=== PATIENT | male | born 1960 | race Caucasian/White ===

== ENCOUNTER 2020-10-29 15:45 | Emergency (ER) | payer OTHER ==
[~2020-10-29] VITALS: Ht 180.3 cm; Wt 112.5 kg
--- NOTE | ~2020-10-29 | EMS ---
[address] [address] EMS Patient Care Report Name: ARIADNA HAJI Room #: DEP TL Sanford#: [id number] Admission: 10/29/20 Attend Phys: Discharge: 10/29/20 Date of : 64 Report #: [id number] THIS REPORT FOR: //name// Report Transmitted: 10/31/2020 14:28 EMS Care Summary [place], [place]/[facility] Incident [id number] @ 10/29/2020 15:06 Incident Location [id number] [place] [address] Patient ARIADNA HAJI Male, 60 Years 1960 Patient Address [address] [place] [address] Patient History Epilepsy,Diabetes,Hypertension (HTN),Stroke/CVA,Hyperlipidemia,Depression, Patient Allergies Penicillin allergy, Patient Medications Atorvastatin, Amlodipine, Lisinopril, Metformin, Keppra, Gabapentin, Plavix, Clonidine, Cymbalta, Insulin, Chief Complaint CHEST PAIN Disposition Transported No Lights/[place] Dispatch Reason Chest Pain (Non-Traumatic) Transported To [facility] Narrative UPON ARRIVAL WE FOUND OUR 61 YEAR OLD MALE PATIENT SITTING IN A W/C IN THE HALLWAY AT [facility] WITH STAFF BY HIS SIDE COMPLAINING OF [address] [address] EMS Patient Care Report Name: ARIADNA HAJI Room #: DEP TL Sanford#: [id number] Admission: 10/29/20 Attend Phys: Discharge: 10/29/20 Date of : 64 Report #: [id number] SHARP, REPRODUCIBLE, RIGHT SIDED CHEST PAIN X 30 MINS THAT STARTED WHILE HE WAS SMOKING A CIGARETTE. THE PATIENT IS A GONCALVES OF THE [facility] AND STAFF REQUESTS THE PATIENT BE TRANSPORTED TO [facility] FOR EVALUATION. Initial Vitals @15:30P: 96,R: 18,BP: 166/98,Pain: 4/10,GCS: 15,Glucose: 215,CO: 3,SpO2: 96,Revised Trauma: 12,MO Suspected: false @15:40P: 64,R: 18,BP: 160/90,Pain: 4/10,GCS: 15,SpO2: 98,Revised Trauma: 12,MO Suspected: false Assessments @15:24MENTAL:Place Oriented,Event Oriented,Time Oriented,Person Oriented,SKIN:HEENT:Eyes: Left Pupil: 4-mm,Eyes: Right Pupil: 4-mm,Head/Face: No Abnormalities,Neck/Airway: No Abnormalities,LUNG SOUNDS:General: No Abnormalities,ABDOMEN:General: No Abnormalities,PELVIS//GI:No Abnormalities,EXTREMITIES:Left Arm: No Abnormalities,Right Arm: No Abnormalities,Left Leg: No Abnormalities,Right Leg: No Abnormalities,PULSE:Radial: 2+ Normal,NEURO:No Abnormalities, Impression Chest Pain / Discomfort Procedures @15:24ALS AssessmentResponse: UnchangedSucceeded@15:303-Lead ECGResponse: UnchangedSucceeded@15:32Saline Lock 0cc (20 ga) Site: Forearm-LeftResponse: UnchangedSucceeded Timeline 15:04,Call Received 15:04,Dispatch Notified 15:06,Dispatched 15:09,En Route 15:21,On Scene 15:24,At Patient 15:24,ALS Assessment,Response: UnchangedSucceeded, 15:30,3-Lead ECG,Response: UnchangedSucceeded, 15:30,BP: 166/98 M,PULSE: 96,RR: 18 R,SPO2: 96 Ox,ETCO2: ,B,PAIN: 4,GCS: 15, 15:32,Saline Lock 0cc 20 ga Site: Forearm-Left,Response: UnchangedSucceeded, 15:34,Depart Scene 15:40,BP: 160/90 M,PULSE: 64,RR: 18 R,SPO2: 98 Ox,ETCO2: ,BG: ,PAIN: 4,GCS: 15, 15:54,At Destination 15:54,Call Closed Disclaimer v1.1 Copyright 2020 [employer] [address] [address] EMS Patient Care Report Name: ARIADNA HAJI Room #: DONNA Sanford#: [id number] Admission: 10/29/20 Attend Phys: Discharge: 10/29/20 Date of : 64 Report #: [id number] This EMS Care Summary contains data elements from the applicable legal record (which may be displayed differently). It is designed to provide pertinent information for the following purposes: continuity of care, clinical quality, and state data reporting. The complete legal record is available to ED staff and administrators of the receiving hospital in [facility]'s Patient Tracker. All data is provided "as is."
[2020-10-29 16:10] LABS: HEMOGLOBIN 13.1 gm/dL (14.0-18.0); MCHC 34.5 g/dL (28.0-37.0); RBC 4.22 mil/uL (4.50-6.00); RDW 13.1 % (10.5-14.5); WBC 8.3 thou/uL (4.0-11.0)
[2020-10-29 16:14] LABS: ANION GAP 5 mmol/L (7-16); BUN 11 mg/dL (7-18); CALCIUM 8.9 mg/dL (8.5-10.1); CHLORIDE 108 mmol/L (98-107); CO2 28 mmol/L (21-32); CREATININE 0.9 mg/dL (0.7-1.3); GLUCOSE 190 mg/dL (74-106); POTASSIUM 3.7 mmol/L (3.5-5.1); SODIUM 141 mmol/L (136-145)
[2020-10-29 16:22] LABS: URINE BILIRUBIN NEGATIVE (Negative); URINE BLOOD NEGATIVE (Negative); URINE CLARITY CLEAR; URINE COLOR YELLOW; URINE GLUCOSE-RANDOM* TRACE (Negative); URINE KETONES NEGATIVE (Negative); URINE LEUKOCYTES-REFLEX NEGATIVE (Negative); URINE NITRITE-REFLEX NEGATIVE (Negative); URINE PROTEIN (DIPSTICK) NEGATIVE (Negative); URINE SPECIFIC GRAVITY <= 1.005 (1.005-1.035); URINE UROBILINOGEN 0.2 E.U./dl (0.2-1.0)
[2020-10-29 16:24] LABS: ALBUMIN 3.7 g/dL (3.4-5.0); SGOT 11 U/L (15-37); SGPT 20 U/L (16-63); TOTAL BILIRUBIN 0.5 mg/dL (0.2-1.0); TOTAL PROTEIN 6.7 g/dL (6.4-8.2); TROPONIN-I <0.06 ng/mL (<0.06)
[2020-10-29 22:24] VITALS: BP 184/91
--- NOTE | 2020-10-30 12:22 | EKG ---
[facility] Figure [address] [place] [address] ELECTROCARDIOGRAM REPORT Name: ARIADNA HAJI Room #: DEP TL Sanford#: [id number] Admission: 10/29/20 Attend Phys: Discharge: 10/29/20 Date of : 64 Report #: [id number] 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 : 1960 Requested By: Nicole Tavarez Order Number: [id number] MD: Trenton Corbett Measurements Intervals [place] Rate: 65 P: -11 NE: 215 QRS: -75 QRSD: 144 T: 33 QT: 458 QTc: 477 Interpretive Statements Sinus rhythm Prolonged NE interval Probable left atrial enlargement Right bundle branch block Left ventricular hypertrophy Inferior infarct, old Lateral leads are also involved Baseline wander in lead(s) V1 No previous ECG available for comparison Electronically Signed On 10-30-2020 12:22:15 CDT by Trenton Corbett [email or web address] <ELECTRONICALLY SIGNED> By: Trenton Corbett MD 10/30/20 1222 1551 1551 Trenton Corbett MD /AYDEE
== END 2020-10-29 22:24 ==
LOC: ER 15:45
PROVIDERS: Nurse Practitioner Family
DX: R10.9 Unspecified abdominal pain (principal); Z20.822 Contact with and (suspected) exposure to COVID-19; I25.2 Old myocardial infarction; E11.9 Type 2 diabetes mellitus without complications; G40.909 Epilepsy, unspecified, not intractable, without status epilepticus; Z88.0 Allergy status to penicillin

== ENCOUNTER 2020-12-24 16:12 | Inpatient (IN) | payer OTHER ==
[~2020-12-24] VITALS: Ht 180.3 cm; Wt 84.8 kg
--- NOTE | ~2020-12-24 | EMS ---
[address] [address] EMS Patient Care Report Name: ARIADNA HAJI Room #: 456-P DIS IN M.RRazia#: [id number] Admission: 12/24/20 Attend Phys: Caden Lynch MD Discharge: 12/27/20 Date of : 64 Report #: [id number] THIS REPORT FOR: //name// Report Transmitted: 12/28/2020 10:09 EMS Care Summary [place], [place]/[facility] Incident [id number] @ 12/24/2020 15:41 Incident Location [id number] [place] [address] Patient ARIADNA HAJI Male, 60 Years 1960 Patient Address [id number] [place] [address] Patient History Other,Diabetes,Depression, Patient Allergies Penicillin allergy, Patient Medications Lantus, Metformin, Gabapentin, Amlodipine, Atorvastatin, Lisinopril, Chief Complaint Right Eye Pain Disposition Transported No Lights/[place] Dispatch Reason Stroke/CVA Transported To [facility] Narrative Nurse at Care Center stated that Pt walked up to Nursing desk sat down and started to scream "I think I am having a stroke". Nurse stated she asked Pt why he is thinks he is having a stroke and Pt stated that he can see only the color red out of his right eye. Pt stated he has a little eye pain but could not put [address] [address] EMS Patient Care Report Name: ARIADNA HAJI Room #: 456-P [facility] IN [place].#: [id number] Admission: 12/24/20 Attend Phys: Caden Lynch MD Discharge: 12/27/20 Date of : 64 Report #: [id number] a number to it per Pt Nurse and no trauma noted to Pt right eye. Pt is a GCS 15 with no other complaints noted. Pt found sitting on floor with Nursing staff with Pt and Pt is covering his right eye, Pt is with no signs of distress noted. Pt stated he can only see "RED" out of his right eye and thinks he is having a stroke too. Pt is with no trauma to right eye and pupils are saravanan and reactive to light. 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 Pt is a GCS 15 with no other complaints noted and no changes noted during transport to ER and Pt received by RN in ER. Initial Vitals @15:51P: 74,R: 20,BP: 139/81,Pain: 0/10,GCS: 15,Glucose: 167,SpO2: 98,Revised Trauma: 12, @16:01P: 78,R: 20,BP: 133/71,Pain: 0/10,GCS: 15,SpO2: 99,Revised Trauma: 12, Assessments @15:47MENTAL:Place Oriented,Time Oriented,Event Oriented,Person Oriented,SKIN:HEENT:Eyes: Right Pupil: 4-mm,Eyes: Left Pupil: 4-mm,Eyes: Right: Other,Neck/Airway: No Abnormalities,LUNG SOUNDS:General: No Abnormalities,ABDOMEN:General: No Abnormalities,PELVIS//GI:No Abnormalities,EXTREMITIES:Capillary Refill: Left Upper: < 2 Sec,Left Arm: No Abnormalities,Right Arm: No Abnormalities,Left Leg: No Abnormalities,Right Leg: No Abnormalities,PULSE:Radial: 2+ Normal,NEURO:No Abnormalities,@16:06MENTAL:Time Oriented,Place Oriented,Event Oriented,Person Oriented,SKIN:HEENT:Eyes: Left Pupil: 4-mm,Eyes: Right Pupil: 4-mm,Eyes: Right: Other,Head/Face: No Abnormalities,Neck/Airway: No Abnormalities,LUNG SOUNDS:General: No Abnormalities,ABDOMEN:General: No Abnormalities,PELVIS//GI:No Abnormalities,EXTREMITIES:Capillary Refill: Left Upper: < 2 Sec,Left Arm: No Abnormalities,Right Arm: No Abnormalities,Left Leg: No Abnormalities,Right Leg: No Abnormalities,PULSE:Radial: 2+ Normal,NEURO:No Abnormalities, Impression Eye Pain Procedures @15:47ALS AssessmentResponse: UnchangedSucceeded@15:50Oxygen FlowRate: 4 Device: Nasal Cannula (NC) Response: UnchangedSucceeded@15:503-Lead ECGResponse: UnchangedSucceeded@15:49General CommentsResponse: Unchanged@15:51Saline Lock 0cc (18 ga) Site: Antecubital-LeftResponse: UnchangedSucceeded Timeline 15:39,Call Received [address] [address] EMS Patient Care Report Name: ARIADNA HAJI Room #: 456-P DIS IN M.R.#: [id number] Admission: 12/24/20 Attend Phys: Caden Lynch MD Discharge: 12/27/20 Date of : 64 Report #: [id number] 15:39,Dispatch Notified 15:41,Dispatched 15:42,En Route 15:45,On Scene 15:47,At Patient 15:47,ALS Assessment,Response: UnchangedSucceeded, 15:49,General Comments,Response: Unchanged 15:50,Oxygen FlowRate: 4 Device: Nasal Cannula (NC) Response: UnchangedSucceeded, 15:50,3-Lead ECG,Response: UnchangedSucceeded, 15:51,Saline Lock 0cc 18 ga Site: Antecubital-Left,Response: UnchangedSucceeded, 15:51,BP: 139/81 M,PULSE: 74,RR: 20 R,SPO2: 98 Ox,ETCO2: ,B,PAIN: 0,GCS: 15, 16:01,BP: 133/71 M,PULSE: 78,RR: 20 R,SPO2: 99 Ox,ETCO2: ,BG: ,PAIN: 0,GCS: 15, 16:01,Depart Scene 16:08,At Destination 16:22,Call Closed Disclaimer v1.1 Copyright 2020 [employer] This EMS Care Summary contains data elements from the applicable legal record (which may be displayed differently). It is designed to provide pertinent information for the following purposes: continuity of care, clinical quality, and state data reporting. The complete legal record is available to ED staff and administrators of the receiving hospital in [employer]'s Patient Tracker. All data is provided "as is."
[2020-12-24 16:35] LABS: ABSOLUTE NEUTROPHILS 3.8 thou/uL (1.4-8.2); BASOPHILS 0.7 % (0.0-2.0); HEMATOCRIT 40.1 % (42.0-52.0); HEMOGLOBIN 13.4 gm/dL (14.0-18.0); LYMPHOCYTES 27.8 % (24.0-44.0); MCH 30.7 pg (26.0-34.0); MCHC 33.4 g/dL (28.0-37.0); MCV 91.9 fL (80.0-100.0); MONOCYTES 8.8 % (1.0-8.0); PLATELET COUNT 198 thou/uL (150-400); POLYS 60.7 % (36.0-66.0); RBC 4.36 mil/uL (4.50-6.00); RDW 13.8 % (10.5-14.5); WBC 6.3 thou/uL (4.0-11.0)
[2020-12-24 16:43] VITALS: BP 143/86
[2020-12-24 16:44] LABS: CALCIUM 9.2 mg/dL (8.5-10.1); CREATININE 0.8 mg/dL (0.7-1.3); POTASSIUM 3.5 mmol/L (3.5-5.1)
[2020-12-24 16:50] LABS: APTT 29.1 Seconds (24.5-32.8); INR 1.12; PROTIME 12.1 Seconds (10.5-12.1)
[2020-12-24] MEDS ORDERED: ACETAMINOPHEN325 MG PO (16:53)
[2020-12-24 16:54] LABS: TOTAL BILIRUBIN 0.4 mg/dL (0.2-1.0); TOTAL PROTEIN 7.2 g/dL (6.4-8.2)
[2020-12-24] MEDS ORDERED: NEURONTIN300 MG PO (16:54)
[2020-12-24] MEDS ORDERED: PLAVIX 75 MG TA75 MG PO (16:54)
[2020-12-24] MEDS ORDERED: LIPITOR 40 MG T40 M1 PO (16:54)
[2020-12-24] MEDS ORDERED: AMLODIPINE BESY10 MG PO (16:54)
[2020-12-24] MEDS ORDERED: ADVIL200 M3 PO (16:55)
[2020-12-24] MEDS ORDERED: LANTUS SUBQ (16:56)
[2020-12-24] MEDS ORDERED: KEPPRA100 MG/1 M PO (16:56)
[2020-12-24] MEDS ORDERED: MELATONIN3 M2 PO (16:57)
[2020-12-24] MEDS ORDERED: METFORMIN HCL1000 MG PO (16:58)
[2020-12-24] MEDS ORDERED: TIZANIDINE HCL4 M2 PO (16:58)
[2020-12-24 19:32] VITALS: BP 152/85
[2020-12-24 20:00] VITALS: BP 146/8
[2020-12-25 04:36] VITALS: BP 154/92
[2020-12-25 07:36] VITALS: BP 148/84
--- NOTE | 2020-12-25 08:08 | NUR ---
ADMITTED THIS PATIENT FROM EMERGENCY AROUND 2000H.ON ROOM AIR BREATHING SPONTANEOUSLY.NOT IN PAIN OR DISTRESS.ADMISSION DONE BUT WITH LIMITED INFORMATION DUE TO PATIENT'S EXPRESSIVE APHASIA.ALL NEEDS ATTEDED. SEIZURE PRECAUTION OBSERVED THROUGHOUT THE SHIFT.
--- NOTE | 2020-12-25 09:29 | EKG ---
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 : 1960 Requested By: Guzman Muro Order Number: [id number] MD: Sae Villalobos Measurements Intervals [place] Rate: 71 P: 37 DC: 239 QRS: -83 QRSD: 149 T: 61 QT: 450 QTc: 490 Interpretive Statements Sinus rhythm Prolonged DC interval Right bundle branch block Inferior and lateral infarcts, old Baseline wander in lead(s) V2 Compared to ECG 10/29/2020 15:51:38 Lateral Q waves are now present Electronically Signed On 12-25-2020 9:29:03 CDT by Sae Villalobos [email or web address] <ELECTRONICALLY SIGNED> By: Sae Villalobos MD, [facility] 12/25/20 0929 1648 1648 Sae Villalobos MD, [facility] /EPI
[2020-12-25 11:34] VITALS: BP 150/84
[2020-12-25 12:19] LABS: CHOLESTEROL 85 mg/dL (<200); HDL CHOLESTEROL 43 mg/dL (>40); LDL CHOLESTEROL 31 mg/dL (<100); TRIGLYCERIDE 56 mg/dL (<150); VLDL 11 mg/dL (<40)
[2020-12-25 15:13] VITALS: BP 156/82
--- NOTE | 2020-12-25 17:06 | NUR ---
PATIENT RESTING IN BED AT THIS TIME. PATIENT AXOX2; SLOW TO EXPRESS HIS NEEDS. HAS SMALL AMOUNT OF RIGHT SIDED FACIAL DROOPING. NO SIGNS OF ACUTE DISTRESS OR PAIN AT THIS TIME. PATIENT DENIES SOA, CHEST PAIN, HEADACHE, OR DIZZINESS. PATIENT DENIES ANY NEEDS AT THIS TIME. FALL PRECAUTIONS AND SEIZURE PRECAUTIONS IN PLACE.
[2020-12-25 19:44] VITALS: BP 148/75
[2020-12-26] VITALS (7 sets, daily range): BP systolic 142–168; BP diastolic 64–95
--- NOTE | 2020-12-26 08:39 | NUR ---
PT RESTING ON AND OFF IN ROOM, VSS, PRN PAIN MEDS GIVEN FOR C/O RODARTE, VOIDING PER URINAL, PLAN ECHO AND MRI FOR MORNING, WILL CON'T TO MONITOR.
--- NOTE | 2020-12-26 09:54 | 2DMMODE ---
[facility] [place] [address] 2 D/M-MODE ECHOCARDIOGRAM Name: ARIADNA HAJI Room #: 204-P ADM IN M.R.#: [id number] Admission: 12/24/20 Attend Phys: Caden Lynch MD Discharge: Date of : 64 Report #: [id number] THIS REPORT FOR: cc: Jerrell Saez MD, Dennis R MD Lundgren, Craig H. MD [facility] ~ APPROVED REPORT Study performed: 12/26/2020 08:34:59 EXAM: Comprehensive 2D, Doppler, and color-flow Echocardiogram Patient Location: Bedside Room #: 204 Status: routine BSA: 2.03 HR: 50 bpm BP: 142/64 mmHg Rhythm: Bradycardia Other Information Study Quality: Good Indications CVA/TIA Diabetes Hypertension/HDD Echo Enhancing Agent Indication: Rule out Shunt Agent(s) / Amount(s) Used: Agitated Saline 7 cc 2D Dimensions RVDd: 30.34 mm IVSd: 14.04 (7-11mm) LVOT Diam: 21.35 (18-24mm) LVDd: 44.60 mm PWd: 14.57 (7-11mm) Ascending Ao: 34.63 (22-36mm) LVDs: 29.17 (25-40mm) Left Atrium: 33.26 (27-40mm) Aortic Root: 35.35 mm IVC: 18.00 mm Volumes Left Atrial Volume (Systole) Single Plane 4CH: 34.37 mL Single Plane 2CH: 35.69 mL LA ESV Index: 21.00 mL/m2 [facility] [address] [place] [address] 2 D/M-MODE ECHOCARDIOGRAM Name: ARIADNA HAJI Room #: 204-P ADM IN Juvenal#: [id number] Admission: 12/24/20 Attend Phys: Caden Lynch MD Discharge: Date of : 64 Report #: [id number] Aortic Valve AoV Peak Jayme.: 1.32 m/s AO Peak Gr.: 7.02 mmHg LVOT Max P.54 mmHg LVOT Max V: 1.28 m/s ANGELI Vmax: 3.45 cm2 Mitral Valve E/A Ratio: 1.1 MV Decel. Time: 443.45 ms MV E Max Jayme.: 0.78 m/s MV A Jayme.: 0.73 m/s MV PHT: 128.60 ms IVRT: 179.93 ms Pulmonary Valve PV Peak Jayme.: 0.85 m/s PV Peak Gr.: 2.92 mmHg Pulmonary Vein P Vein S: 0.49 m/s P Vein A: 0.22 m/s P Vein D: 0.32 m/s P Vein A Dur.: 124.6 msec P Vein S/D Ratio: 1.53 Left Ventricle The left ventricle is normal size. There is normal LV segmental wall motion. Mild concentric left ventricular hypertrophy. Left ventricular systolic function is normal. The left ventricular ejection fraction is within the normal range. LVEF is 60-65%. Moderate diastolic dysfunction Right Ventricle The right ventricle is normal size. The right ventricular systolic function is normal. Atria The left atrium size is normal. No shunting by contrast bubble injection The right atrium size is normal. Aortic Valve The aortic valve is mildly calcified. No aortic regurgitation is present. There is no aortic valvular stenosis. Mitral Valve Mild mitral annular calcification There is no mitral valve regurgitation noted. No evidence of mitral valve stenosis. [facility] [address] [place] [address] 2 D/M-MODE ECHOCARDIOGRAM Name: ARIADNA HAJI Room #: 204-P ADM IN M.R.#: [id number] Admission: 12/24/20 Attend Phys: Caden Lynch MD Discharge: Date of : 64 Report #: [id number] Tricuspid Valve The tricuspid valve is normal in structure. There is no tricuspid valve regurgitation noted. Pulmonic Valve The pulmonary valve is normal in structure. There is no pulmonic valvular regurgitation. Great Vessels The aortic root is normal in size. IVC is normal in size and collapses >50% with inspiration. Pericardium There is no pericardial effusion. <Conclusion> Left ventricular systolic function is normal. There is normal LV segmental wall motion. LVEF is 60-65%. Mild concentric left ventricular hypertrophy. No shunting by contrast bubble injection The aortic valve is mildly calcified. No aortic regurgitation or stenosis Mild mitral annular calcification. No mitral valve regurgitation. Pulmonary artery pressure could not be reliably ascertained There is no pericardial effusion. <ELECTRONICALLY SIGNED> By: Sae Villalobos MD, FACC 12/26/2054 3 3 Sae Villalobos MD, FACC /INF
--- NOTE | 2020-12-26 16:52 | NUR ---
Patient admits from [facility]. Patient has no information from [facility] in chart. Sp with [facility] who confirmed he is resident. Requested face sheet and med list be faxed to [facility]. Spoke with Steven Jernigan office, Delon Flynn is gone for day. Plan to sp with Guardian in am. Patient with aphasic aphagia and appears to understand role of casemgt to help coordinate return to [facility] once stable. Casemgt following
--- NOTE | 2020-12-26 17:39 | NUR ---
ER called to ask ER MD to perform eye exam on patient as discussed with Dr. Lynch. Awaiting reply at 1650. Called again at 1740, ER MD busy again at this time. Will attempt later. Urinary catheter discontinued at 1700.
--- NOTE | 2020-12-26 17:41 | NUR ---
ER CALLED TO ASK ER MD TO PERFORM EYE EXAM DISCUSSED WITH . THIS RN WAS TOLD ER DIGITAL MARKETING LEAD WILL CALL BACK AT 1650. 1750- ER WAS PHONED AGAIN FOR REQUEST OF EYE EXAM FOR PATIENT. AT THIS TIME ER MD WAS BUSY AND CANNOT PERFORM TEST. WILL ATTEMPT AGAIN LATER.
[2020-12-27 00:59] VITALS: BP 157/87
--- NOTE | 2020-12-27 03:19 | NUR ---
PT ARRIVED ON THE UNIT AT 0. PT IS ALERT AND RESPOND APPROPRIATELY TO QUESTIONS. PT HAS EXPRESSIVE ASPHASIA. PT HAS R SIDED WEAKNESS AND C/O OF VISION IN THE RIGHT EYE. PT IS ABLE TO MAKE NEEDS KNOWN. PT IS ON SEIZURE PRECAUTIONS. PT IS ON ROOM RA. FALL PRECAUTIONS IN PLACE. WILL CONTINUE TO MONITOR.
[2020-12-27 08:00] VITALS: BP 155/80
--- NOTE | 2020-12-27 13:06 | NUR ---
4 UNITS of lispro given to the patient according to the order. the scanner in the room was not working, the staff used the portable computer, the computer stopped working during the chartting, the staff could not chart Lispro 4 units given at 1245 pm.
--- NOTE | 2020-12-27 13:55 | NUR ---
PT WAS TRANSFERED FROM . CM REVIEWED CHART AND SPOKE WITH CARE TEAM. PT HAD BEEN CLEARED MEDICALLY BUT NEURO WAS WANTING PT TO HAVE OP OPHTHALMOLOGY. REACHED OUT TO OFFICE HERE ON PREMISIS AFTER HAVING REQUESTED AND RECEIVED PERMISSION FROM PT'S [facility] AND THEY INDICATE THAT THEY DON'T HAVE ANY APPOINTMENT TODAY AND WON'T HAVE ANY UNTIL THE END F THIS MONTH. CM NOTIFIED PHYSICIAN. HE INDICATED PT IS MEDICALLY STABLE TO DC BACK TO FACILITY WITH OP APPOINTMENT TO BE MADE. CM NOTIFIED DON AT [facility] AND THEY INDICATED THAT THEY ARE WILLING AND ABLE TO ACCEPT PT BACK TODAY AND WILL PROVIDE TRANSPORT. CM TO NOTIFY THEM ONCE ORDERS ARE ENTERED.
[2020-12-27] MEDS ORDERED: KEPPRA1000 MG PO (14:32)
[2020-12-27] MEDS ORDERED: ADULT LOW DOSE81 MG PO (14:32)
--- NOTE | 2020-12-30 11:42 | HC ---
[facility] [place] [address] CONSULTATION Name: ARIADNA HAJI Room #: 456-P [facility] IN [place].#: [id number] Admission: 12/24/20 Attend Phys: Caden Lynch MD Discharge: 12/27/20 Date of : 64 Report #: [id number] THIS REPORT FOR: cc: Jerrell Saez MD, Dennis R MD [place], Roxane S. DO ~ NEUROLOGY CONSULT HISTORY OF PRESENT ILLNESS: The patient is from [facility]. Per the nursing staff, the patient walked up to the nurse's station, laid down on the ground and had a generalized seizure. Per the nursing staff, when the patient came to, he states that he could not see out of his right eye. EMS arrived, they did not notice any right sided weakness. The patient has slight dysarthria, but this is the patient's baseline. He has a history of stroke. The patient was evaluated in the Emergency Room. Stenosis was seen on the CT angiogram and a comprehensive stroke center was called. Dr. Vang at [facility] agreed that the CTA findings do not match the neurological findings and agreed that no TPA should be administered nor is the patient a candidate for thrombectomy. The patient is unable to provide a history. When asked why he is here, he keeps his eyes closed and states that he cannot see out of his right eye. PAST MEDICAL HISTORY: Stroke, benign prostatic hypertrophy, diabetes mellitus, myocardial infarction, seizure disorder, insomnia. PAST SURGICAL HISTORY: Unknown. MEDICATIONS: At home, amlodipine 10 mg daily, Lipitor 40 mg daily, Plavix 75 mg daily, gabapentin 300 mg t.i.d., levetiracetam 500 mg b.i.d., Lantus insulin 15 units at bedtime, melatonin 3 mg at bedtime, metformin 1000 mg b.i.d., tizanidine 4 mg t.i.d. ALLERGIES: PENICILLIN. VITAL SIGNS: Temperature 36.9, pulse rate 52, respiratory rate 16, blood pressure 148/84, bedside pulse oximetry 99% on room air. LABORATORY DATA: Hematology: White blood cell count 6.3, hemoglobin 13.4, hematocrit 40.1, MCV 91.9, platelet count 198,000. INR 1.12. Chemistry: Sodium 145, potassium 3.5, chloride 107, carbon dioxide 28, BUN 8, creatinine 0.8, glucose 116, calcium 9.2, total bilirubin 0.4, AST 20, ALT 30, alkaline phosphatase 67, total protein 7.2, albumin 4. COVID negative. IMAGING: CT scan of the head demonstrates an old left middle cerebral artery infarct. No acute intracranial process seen. CT angiogram demonstrates [address] [address] CONSULTATION Name: ARIADNA HAJI Room #: 456-P [facility] IN M.R.#: [id number] Admission: 12/24/20 Attend Phys: Caden Lynch MD Discharge: 12/27/20 Date of : 64 Report #: [id number] calcification in the carotid bulb and bifurcation region, the right side is widely patent. There is mild to moderate stenosis of the proximal left internal carotid artery. The anterior and middle cerebral arteries are patent. There is apparent high-grade stenosis of the proximal aspect of the right posterior cerebral artery with somewhat poor filling of the right posterior cerebral artery. NEUROLOGIC EXAM: The patient is sitting up in bed. I asked him to open his eyes and he would not do it. He told me that his eyes were open when they were not, they were closed. Therefore, I could not examine his pupils, his extraocular movements or his gross confrontational urena. The patient does have a right facial droop. Motor exam, I asked the patient to move his arms and legs, he would not move his arms. I held his arms out in front of him and he kept them out. There was no drift. In the lower extremities, he was able to lift each leg several inches off the bed. Reflexes are trace. Plantar responses were extensor on the right, flexor on the left. The patient could not cooperate with [id number]. IMPRESSION AND PLAN: This patient has a history of seizure disorder secondary to stroke. The dose of levetiracetam has been increased to 1000 mg twice a day. The medication will be changed from IV to oral as he is on other oral medications. With regard to the vision of his right eye, it is difficult to know what has happened because the patient will not keep his eye open. I would recommend the patient be seen by an career orientation teacher, although I know it is sometimes difficult to find an career orientation teacher to come to the hospital. The patient has had a CT scan of the head and CT angiogram. I will order an MRI of the head and echocardiogram. Dr. Lopez will be following the patient as of Saturday. <ELECTRONICALLY SIGNED> By: Roselyn Fernandez DO 12/30/20 1142 0959 1401 Roselyn Fernandez DO /nt
== END 2020-12-27 15:44 | DRG 101 ==
LOC: ER 16:12 → EROBS 18:20 → 2N 18:20 → 4W 12-26 22:41
PROVIDERS: Emergency Medicine; Psychiatry & Neurology Neurology; Psychiatry & Neurology Neuromuscular Medicine; ADMIT Internal Medicine; ATTEND Internal Medicine
DX: G40.409 Other generalized epilepsy and epileptic syndromes, not intractable, without status epilepticus (principal); I69.351 Hemiplegia and hemiparesis following cerebral infarction affecting right dominant side; Z20.822 Contact with and (suspected) exposure to COVID-19; H57.11 Ocular pain, right eye; I67.9 Cerebrovascular disease, unspecified; Z79.899 Other long term (current) drug therapy; I25.10 Atherosclerotic heart disease of native coronary artery without angina pectoris; I10 Essential (primary) hypertension; E11.42 Type 2 diabetes mellitus with diabetic polyneuropathy; Z79.4 Long term (current) use of insulin; E78.5 Hyperlipidemia, unspecified; G47.00 Insomnia, unspecified; I25.2 Old myocardial infarction; Z88.0 Allergy status to penicillin; I69.322 Dysarthria following cerebral infarction; I69.320 Aphasia following cerebral infarction; I65.22 Occlusion and stenosis of left carotid artery; N40.0 Benign prostatic hyperplasia without lower urinary tract symptoms; Z23 Encounter for immunization
CPT/HCPCS: 10045; 10081

== ENCOUNTER 2021-01-03 17:05 | Emergency (ER) | payer OTHER ==
[~2021-01-03] VITALS: Ht 180.3 cm; Wt 90.7 kg
--- NOTE | ~2021-01-03 | EMS ---
[address] [address] EMS Patient Care Report Name: ARIADNA HAJI Room #: REG TL Sanford#: [id number] Admission: 01/03/21 Attend Phys: Discharge: Date of : 64 Report #: [id number] THIS REPORT FOR: //name// Report Transmitted: 01/03/2021 18:04 EMS Care Summary [place], [place]/[facility] Incident [id number] @ 01/03/2021 16:39 Incident Location [address] [facility] Patient ARIADNA HAJI Male, 60 Years 1960 Patient Address [id number] [place], [place] [id number] Patient History Other,Diabetes,Hypertension (HTN),Depression, Patient Allergies Penicillin allergy, Patient Medications Gabapentin, Amlodipine, Atorvastatin, Metformin, Lantus, Lisinopril, Chief Complaint headache Disposition Transported No Lights/[place] Dispatch Reason Headache Transported To [place] [facility] Narrative pt found seated in wheelchair, alert. staff states pt c/o headache on R side and blurred vision in R eye, 2 hrs ago. they state pt had similar episode a little over a week ago, was released 12[facility]27 [facility]. pt normally has some cognitive delay and slurred speech. only new or reoccurring symptom is the headache and [address] [address] EMS Patient Care Report Name: ARIADNA HAJI Room #: REG TL Sanford#: [id number] Admission: 01/03/21 Attend Phys: Discharge: Date of : 64 Report #: [id number] blurred vision. pt to cot, VS, transport w/o change. Initial Vitals @16:49P: 61,R: 18,BP: 150/77,Pain: 8/10,GCS: 14,Glucose: 113,SpO2: 98,Revised Trauma: 12, Assessments @16:46MENTAL:Confused,SKIN:No Abnormalities,HEENT:Head/Face: Facial Droop,Head/Face: Other,LUNG SOUNDS:ABDOMEN:PELVIS//GI:EXTREMITIES:PULSE:Radial: 2+ Normal,NEURO:Facial Droop,Slurred Speech, Impression Headache Procedures @16:46ALS AssessmentResponse: Unchanged@16:47StretcherResponse: Unchanged@16:503-Lead ECGResponse: Unchanged@16:52 cc (20 ga) Site: Forearm-LeftResponse: UnchangedFailed Timeline 16:36,Call Received 16:36,Dispatch Notified 16:39,Dispatched 16:43,En Route 16:43,On Scene 16:46,At Patient 16:46,ALS Assessment,Response: Unchanged 16:47,Stretcher,Response: Unchanged 16:49,BP: 150/77 M,PULSE: 61,RR: 18 R,SPO2: 98 Ox,ETCO2: ,B,PAIN: 8,GCS: 14, 16:50,3-Lead ECG,Response: Unchanged 16:50,Depart Scene 16:52, cc 20 ga Site: Forearm-Left,Response: UnchangedFailed, 16:58,At Destination 17:18,Call Closed Disclaimer v1.1 Copyright 2020 [employer] This EMS Care Summary contains data elements from the applicable legal record (which may be displayed differently). It is designed to provide pertinent information for the following purposes: continuity of care, clinical quality, and state data reporting. The complete legal record is available to ED staff and administrators of the receiving hospital in [employer]'s Patient Tracker. All data is provided "as is."
[~2021-01-03 17:05] MED LIST: ACETAMINOPHEN325 MG PO; ADULT LOW DOSE81 MG PO; ADVIL200 M3 PO; AMLODIPINE BESY10 MG PO; KEPPRA100 MG/1 M PO; KEPPRA1000 MG PO; LANTUS SUBQ; LIPITOR 40 MG T40 M1 PO; MELATONIN3 M2 PO; METFORMIN HCL1000 MG PO; NEURONTIN300 MG PO; PLAVIX 75 MG TA75 MG PO; TIZANIDINE HCL4 M2 PO
[2021-01-03 17:06] VITALS: BP 149/85
[2021-01-03] MEDS ORDERED: CLONIDINE HCL0.1 M1 PO (17:17)
[2021-01-03] MEDS ORDERED: CYMBALTA30 MG PO (17:17)
[2021-01-03] MEDS ORDERED: LISINOPRIL2.5 MG PO (17:18)
[2021-01-03] MEDS ORDERED: MILK OF MA400 MG/5 M PO (17:20)
[2021-01-03 18:37] LABS: BASOPHILS 0.8 % (0.0-2.0); EOSINOPHILS 2.7 % (0.0-3.0); HEMATOCRIT 37.8 % (42.0-52.0); HEMOGLOBIN 12.6 gm/dL (14.0-18.0); LYMPHOCYTES 30.2 % (24.0-44.0); MCH 30.4 pg (26.0-34.0); MCHC 33.3 g/dL (28.0-37.0); MCV 91.1 fL (80.0-100.0); MONOCYTES 9.3 % (1.0-8.0); PLATELET COUNT 214 thou/uL (150-400); RBC 4.15 mil/uL (4.50-6.00); RDW 13.7 % (10.5-14.5)
[2021-01-03 18:41] LABS: CALCIUM 8.9 mg/dL (8.5-10.1); CREATININE 0.7 mg/dL (0.7-1.3); MAGNESIUM 1.8 mg/dL (1.8-2.4); POTASSIUM 3.7 mmol/L (3.5-5.1)
== END 2021-01-03 22:15 | disposition left against medical advice (07) ==
LOC: ER 17:05
PROVIDERS: Nurse Practitioner
DX: R51.9 Headache, unspecified (principal); G40.909 Epilepsy, unspecified, not intractable, without status epilepticus; I25.2 Old myocardial infarction; E11.9 Type 2 diabetes mellitus without complications; Z86.73 Personal history of transient ischemic attack (TIA), and cerebral infarction without residual deficits; Z79.82 Long term (current) use of aspirin; Z79.891 Long term (current) use of opiate analgesic; Z79.4 Long term (current) use of insulin; Z79.1 Long term (current) use of non-steroidal anti-inflammatories (NSAID); Z79.899 Other long term (current) drug therapy; Z88.0 Allergy status to penicillin

== ENCOUNTER 2021-01-13 15:31 | Emergency (ER) | payer OTHER ==
[~2021-01-13] VITALS: Ht 182.9 cm; Wt 86.2 kg
--- NOTE | ~2021-01-13 | EMS ---
[address] [address] EMS Patient Care Report Name: ARIADNA HAJI Room #: DEP TL Sanford#: [id number] Admission: 01/13/21 Attend Phys: Discharge: 01/13/21 Date of : 64 Report #: [id number] THIS REPORT FOR: //name// Report Transmitted: 01/16/2021 10:46 EMS Care Summary [place], [place]/[facility] Incident [id number] @ 01/13/2021 14:46 Incident Location [address] [facility] Patient ARIADNA HAJI Male, 60 Years 1960 Patient Address [id number] [place] [address] Patient History Other,Epilepsy,Diabetes,Hypertension (HTN),Stroke/CVA,Hyperlipidemia,Depression,Back Pain (Chronic),Type 2 Diabetes,Insomnia,Myocardial Infarction ([place]), Patient Allergies Penicillin allergy, Patient Medications Gabapentin, Metformin, Atorvastatin, Melatonin, Tizanidine, Aspirin, Levetiracetam, Amlodipine, Clopidogrel, Lantus, Clonidine, Lisinopril, Acetaminophen, Chief Complaint ALTERED MENTAL STATUS Disposition Transported No Lights/[place] Dispatch Reason Convulsions/Seizure Transported To [address] [address] EMS Patient Care Report Name: ARIADNA HAJI Room #: DEP ER Juvenal#: [id number] Admission: 01/13/21 Attend Phys: Discharge: 01/13/21 Date of : 64 Report #: [id number] PUMPER /MEDIC WERE DISPATCHED TO THE ADDRESS LSITED PREVIOUSLY IN THIS REPORT ON A SEIZURE. UPON ARRIVAL, EMS OBSERVED ONE MALE PATIENT BEING BROUGHT TOWARDS EMS IN WHEELCHAIR. EMS OBSERVED THE PATIENT SLUMPED OVER IN THE CHAIR. PATIENT WAS NOT TRACKING EMS UPON APPROACH. EMS OBSERVED THE PATIENT TO TRACK EMS AFTER PHYSICAL STIMULATION. FACILITY DIRECTOR OR NURSING INFORMED EMS THAT THE PATIENT HAD A BEHAVIORAL EMERGENCY TWO HOURS PRIOR TO EMS ARRIVAL WHICH RESULTED IN THE PATIENT BEING CHEMICALLY RESTRAINED. FACILITY DIRECTOR OR NURSING DESCRIBED THE BEHAVORIAL EMERGENCY THE PATIENT "THROWING HIMSELF ON THE GROUND AND THROWING HIMSELF AROUND ON THE FLOOR". COMMANDING OFFICER GARAGE THEN INFORMED EMS THAT THE PATIENT HAD "SEIZIRE LIKE ACTIVITY" WHICH INCLUDED THE PATIENT "THROWING HIMSELF ON THE GROUND AND THROWING HIMSELF AROUND ON THE FLOOR". FACILITY COMMANDING OFFICER GARAGE INFORMED EMS THAT THEY WANTED THE PATIENT SEEN AT THE HOSPITAL FOR ALTERED MENTAL STATUS. FACILITY COMMANDING OFFICER GARAGE THEN INFORMED EMS THAT THE PATIENT WAS AT HIS BASELINE MENTAL STATUS (GCS 11). DIRECTOR OR NURSING THEN INFORMED EMS THAT THEY WERE CONCERNED FOR POSSIBLE STROKE SYMPTOMS WITH THE PATIENT AND REPORTED RIGHT SIDED WEAKNESS. EMS OBSERVED LEFT SIDED FACIAL DROOP. EMS OBSERVED NO ONE SIDED WEAKNESS. FACILITY COMMANDING OFFICER GARAGE BECAME UPSET WITH EMS WHEN EMS ATTEMPTED TO ASK CLARIFICATION IN REGARDS TO HIS DESCRIPTION OF EVENTS LEADING UP TO EMS ACTIVATION. PATIENT WAS THEN PLACED ON THE COT AND MOVED TO THE AMBULACNE WITHOUT INCIDENT. ONCE IN THE AMBULANCE, VITAL SIGN MONITORING CONTINUED. IV ACCESS WAS ESTABLISHED. ONCE ENROUTE TO THE RECEIVING FACILITY ([facility]), VITAL SIGN MONITORING CONTINUED AND RADIO REPORT WAS GIVEN. UPON ARRIVAL AT THE RECEVING FACILITY, PATIENT WAS MOVED FROM THE AMBULANCE TO THE HOSPITAL COT WITHOUT INCIDENT. VERBAL REPORT WAS GIVEN TO THE PATIENT'S NURSE AND PATIENT CARE WAS TRANSFERRED. Initial Vitals @15:09P: 61,R: 12,BP: 120/75,Pain: 0/10,GCS: 12,Glucose: 173,CO: 9,SpO2: 98,Revised Trauma: 11, Assessments @15:02MENTAL:Confused,SKIN:HEENT:Head/Face: Facial Droop,LUNG SOUNDS:ABDOMEN:PELVIS//GI:EXTREMITIES:PULSE:Radial: 2+ Normal,NEURO:Facial Droop,Slurred Speech, Impression Altered Mental Status Procedures @15:13 IV Therapy - Saline Lock 10cc (18 ga) Site: Antecubital-Left Response: UnchangedSucceeded @15:02 ALS Assessment Response: UnchangedSucceeded Timeline [facility] [address] [place] [address] EMS Patient Care Report Name: ARIADNA HAJI Room #: DONNA Sanford#: [id number] Admission: 01/13/21 Attend Phys: Discharge: 01/13/21 Date of : 64 Report #: [id number] 14:44,Call Received 14:44,Dispatch Notified 14:46,Dispatched 14:48,En Route 15:00,On Scene 15:02,At Patient 15:02,ALS Assessment,Response: UnchangedSucceeded, 15:09,BP: 120/75 M,PULSE: 61,RR: 12 R,SPO2: 98 Ox,ETCO2: ,B,PAIN: 0,GCS: 12, 15:13,IV Therapy - Saline Lock 10cc 18 ga Site: Antecubital-Left,Response: UnchangedSucceeded, 15:21,Depart Scene 15:37,At Destination 16:08,Call Closed Disclaimer v1.1 Copyright 2020 [email or web address] This EMS Care Summary contains data elements from the applicable legal record (which may be displayed differently). It is designed to provide pertinent information for the following purposes: continuity of care, clinical quality, and state data reporting. The complete legal record is available to ED staff and administrators of the receiving hospital in [employer]'s Patient Tracker. All data is provided "as is."
[~2021-01-13 15:31] MED LIST changes: +CLONIDINE HCL0.1 M1 PO; +CYMBALTA30 MG PO; +LISINOPRIL2.5 MG PO; +MILK OF MA400 MG/5 M PO
[2021-01-13 16:36] LABS: ABSOLUTE NEUTROPHILS 3.6 thou/uL (1.4-8.2); BASOPHILS 0.5 % (0.0-2.0); HEMATOCRIT 37.2 % (42.0-52.0); HEMOGLOBIN 12.3 gm/dL (14.0-18.0); MCH 30.4 pg (26.0-34.0); MCHC 32.9 g/dL (28.0-37.0); MCV 92.2 fL (80.0-100.0); MONOCYTES 8.6 % (1.0-8.0); PLATELET COUNT 190 thou/uL (150-400); POLYS 59.9 % (36.0-66.0); RBC 4.04 mil/uL (4.50-6.00); RDW 13.9 % (10.5-14.5); WBC 6.1 thou/uL (4.0-11.0)
[2021-01-13 16:47] LABS: CALCIUM 7.7 mg/dL (8.5-10.1); CREATININE 0.6 mg/dL (0.7-1.3)
[2021-01-13 16:55] LABS: ALBUMIN 3.1 g/dL (3.4-5.0); TOTAL BILIRUBIN 0.5 mg/dL (0.2-1.0); TOTAL PROTEIN 5.5 g/dL (6.4-8.2)
[2021-01-13 17:00] LABS: POTASSIUM 3.6 mmol/L (3.5-5.1)
[2021-01-13 20:29] VITALS: BP 154/78
--- NOTE | 2021-01-14 08:23 | EKG ---
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 : 1960 Requested By: Reg Lane Order Number: [id number] MD: Christopher Fraire Measurements Intervals [place] Rate: 58 P: -3 IA: 235 QRS: -73 QRSD: 150 T: 36 QT: 496 QTc: 488 Interpretive Statements Sinus rhythm Prolonged IA interval Right bundle branch block Inferior infarct, old Lateral leads are also involved Compared to ECG 12/24/2020 16:48:30 Myocardial infarct finding now present Electronically Signed On 01-14-2021 8:22:31 CDT by Christopher Fraire [email or web address] <ELECTRONICALLY SIGNED> By: Christopher Fraire MD, [facility] 01/14/21 0822 D: [id number] Christopher Fraire MD, FACC /EPI
== END 2021-01-13 20:31 | disposition home or self-care (01) ==
LOC: ER 15:31
PROVIDERS: Emergency Medicine
DX: R41.82 Altered mental status, unspecified (principal); G40.909 Epilepsy, unspecified, not intractable, without status epilepticus; I25.2 Old myocardial infarction; E11.9 Type 2 diabetes mellitus without complications; Z79.82 Long term (current) use of aspirin; Z79.4 Long term (current) use of insulin; Z79.891 Long term (current) use of opiate analgesic; Z79.899 Other long term (current) drug therapy; Z79.1 Long term (current) use of non-steroidal anti-inflammatories (NSAID); Z88.0 Allergy status to penicillin

== ENCOUNTER 2021-01-28 13:58 | Emergency (ER) | payer OTHER ==
[~2021-01-28] VITALS: Ht 177.8 cm; Wt 113.4 kg
--- NOTE | ~2021-01-28 | EMS ---
[address] [address] EMS Patient Care Report Name: ARIADNA HAJI Room #: REG TL Sanford#: [id number] Admission: 01/28/21 Attend Phys: Discharge: Date of : 64 Report #: [id number] THIS REPORT FOR: //name// Report Transmitted: 01/28/2021 13:53 EMS Care Summary [place], [place]/[facility] Incident [id number] @ 01/28/2021 13:20 Incident Location [address] [place] [address] Patient ARIADNA HAJI Male, 60 Years 1960 Patient Address [address] [place] [address] Patient History Other,Epilepsy,Diabetes,Hypertension (HTN),Stroke/CVA,Substance Abuse,Hyperlipidemia,Depression,Back Pain (Chronic),Type 2 Diabetes,Insomnia,Myocardial Infarction ([place]), Patient Allergies Penicillin allergy, Patient Medications Gabapentin, Atorvastatin, Acetaminophen, Lantus, Plavix, Lisinopril, Melatonin, Amlodipine, Aspirin, Clonidine, Clopidogrel, Tizanidine, Levetiracetam, Metformin, Chief Complaint FACE PAIN Disposition Transported No Lights/[place] Dispatch Reason Convulsions/Seizure Transported To [address] [address] EMS Patient Care Report Name: ARIADNA HAJI Room #: REG TL Sanford#: [id number] Admission: 01/28/21 Attend Phys: Discharge: Date of : 64 Report #: [id number] Narrative RESPONDED TO SEIZURE AT [facility]. UPON ARRIVAL PT FOUND LAYING SUPINE ON FLOOR ALERT AND ORIENTED. PT HAS MILD SWELLING TO THE RIGHT SIDE OF HIS FACE. PT HAD UNWITNESSED FALL BUT STAFF ASSUME HE PROBABLY HAD A SEIZURE DUE TO HX. PT DENIES LOC OR BACK/NECK PAIN. PT IS ON BLOOD THINNER. PT DENIES ANY PAIN OR INJURIES ELSEWHERE OTHER THAN FACE. PT ASSISTED TO COT AND SEATBELTS APPLIED. PT VITALS AND IV OBTAINED. PT TRANSPORTED TO [facility] WITH NO CHANGES IN CONDITION. PT TEAM LIFTED TO BED AND HANDRAILS UP. REPORT GIVEN TO NURSE. Initial Vitals @13:41P: 68, @13:47P: 146,CO: 6,SpO2: 96, @13:36P: 71,R: 20,BP: 125/83,Pain: 8/10,GCS: 15,Glucose: 245,SpO2: 96,Revised Trauma: 12, @13:48P: 68,R: 18,BP: 124/71,SpO2: 96, @13:37P: 70,R: 18,BP: 141/76, Assessments @13:30MENTAL:Time Oriented,Person Oriented,Place Oriented,Event Oriented,SKIN:HEENT:Head/Face: Swelling,Head/Face: JESSE,Eyes: JESSE,Neck/Airway: No Abnormalities,LUNG SOUNDS:General: No Abnormalities,Left Upper: No Abnormalities,Right Upper: No Abnormalities,Left Lower: No Abnormalities,Right Lower: No Abnormalities,ABDOMEN:General: No Abnormalities,Left Upper: No Abnormalities,Right Upper: No Abnormalities,Left Lower: No Abnormalities,Right Lower: No Abnormalities,PELVIS//GI:No Abnormalities,EXTREMITIES:Right Arm: Weakness,Left Arm: Weakness,Left Leg: Weakness,Right Leg: Weakness,PULSE:Radial: 2+ Normal,NEURO:Slurred Speech,Weakness Right-Sided, Impression Injury of Face Procedures @13:41 IV Therapy - Saline Lock 5cc (18 ga) Site: Antecubital-Left Response: UnchangedSucceeded @13:33 C-Spine Clearance Response: Unchanged @13:38 3-Lead ECG Response: UnchangedSucceeded @13:30 ALS Assessment Response: UnchangedSucceeded Timeline 13:19,Call Received 13:19,Dispatch Notified 13:20,Dispatched 13:21,En Route 13:27,On Scene 13:30,At Patient [address] [address] EMS Patient Care Report Name: ARIADNA HAJI Room #: REG LT Sanford#: [id number] Admission: 01/28/21 Attend Phys: Discharge: Date of : 64 Report #: [id number] 13:30,ALS Assessment,Response: UnchangedSucceeded, 13:33,C-Spine Clearance,Response: Unchanged 13:36,BP: 125/83 M,PULSE: 71,RR: 20 R,SPO2: 96 Ox,ETCO2: ,B,PAIN: 8,GCS: 15, 13:37,BP: 141/76 M,PULSE: 70,RR: 18 R,SPO2: Ox,ETCO2: ,BG: ,PAIN: ,GCS: , 13:38,3-Lead ECG,Response: UnchangedSucceeded, 13:41,BP: / M,PULSE: 68,RR: R,SPO2: Ox,ETCO2: ,BG: ,PAIN: ,GCS: , 13:41,IV Therapy - Saline Lock 5cc 18 ga Site: Antecubital-Left,Response: UnchangedSucceeded, 13:43,Depart Scene 13:47,BP: / M,PULSE: 146,RR: R,SPO2: 96 Ox,ETCO2: ,BG: ,PAIN: ,GCS: , 13:48,BP: 124/71 M,PULSE: 68,RR: 18 R,SPO2: 96 Ox,ETCO2: ,BG: ,PAIN: ,GCS: , 13:51,At Destination 14:04,Call Closed Disclaimer v1.1 Copyright 2020 [employer] This EMS Care Summary contains data elements from the applicable legal record (which may be displayed differently). It is designed to provide pertinent information for the following purposes: continuity of care, clinical quality, and state data reporting. The complete legal record is available to ED staff and administrators of the receiving hospital in [employer]'s Patient Tracker. All data is provided "as is."
[2021-01-28 16:15] VITALS: BP 149/81
== END 2021-01-28 16:23 | disposition home or self-care (01) ==
LOC: ER 13:58
DX: S00.83XA Contusion of other part of head, initial encounter (principal); E11.9 Type 2 diabetes mellitus without complications; Z79.4 Long term (current) use of insulin; Z79.899 Other long term (current) drug therapy; Z88.0 Allergy status to penicillin; W19.XXXA Unspecified fall, initial encounter; Y93.89 Activity, other specified; Y92.89 Other specified places as the place of occurrence of the external cause; Y99.8 Other external cause status

== ENCOUNTER 2021-02-02 16:22 | Emergency (ER) | payer OTHER ==
[~2021-02-02] VITALS: Ht 185.4 cm; Wt 90.7 kg
--- NOTE | ~2021-02-02 | EMS ---
[address] [address] EMS Patient Care Report Name: ARIADAN HAJI Room #: REG TL Sanford#: [id number] Admission: 02/02/21 Attend Phys: Discharge: Date of : 64 Report #: [id number] THIS REPORT FOR: //name// Report Transmitted: 02/02/2021 16:47 EMS Care Summary [place], [place]/[facility] Incident [id number] @ 02/02/2021 15:45 Incident Location [address] [facility] Patient ARIADNA HAJI Male, 60 Years 1960 Patient Address [address] [place] [address] Patient History Other,Epilepsy,Diabetes,Hypertension (HTN),Stroke/CVA,Substance Abuse,Hyperlipidemia,Depression,Back Pain (Chronic),Type 2 Diabetes,Insomnia,Myocardial Infarction ([place]), Patient Allergies Penicillin allergy, Patient Medications Plavix, Aspirin, Lisinopril, Atorvastatin, Acetaminophen, Tizanidine, Clonidine, Lantus, Metformin, Gabapentin, Melatonin, Levetiracetam, Amlodipine, Clopidogrel, Chief Complaint possible sz Disposition Transported No Lights/[place] Dispatch Reason Convulsions/Seizure Transported To [facility] [address] [place] [address] EMS Patient Care Report Name: ARIADNA HAJI Room #: REG TL Sanford#: [id number] Admission: 02/02/21 Attend Phys: Discharge: Date of : 64 Report #: [id number] staff states pt was found on the floor in the doorway of his room. unwitnessed fall. pt has a red jeremias on his R cheek and mild swelling over R brow. staff put pt in bed and he started to have what they believe are pseudo sz. they state he had 3 in 5 min. he thrashes his legs and arms angrily and has no post ictal phase. pt had similar episode a few days ago and was seen at [facility]. that visit was when they thought pt may be having pseudo sz. pt now quietly in bed but starts to thrash his arms when VS are attempted and tries to take c collar off. transport pt to [facility] w/o change. report to staff hallway bed. Initial Vitals @16:16P: 85,R: 20,BP: 132/70,GCS: 10,Revised Trauma: 11, @16:00P: 84,R: 20,BP: 154/76,GCS: 10,Glucose: 152,SpO2: 95,Revised Trauma: 11, Assessments @15:51MENTAL:Confused,Other,Combative,SKIN:No Abnormalities,HEENT:Head/Face: Swelling,Head/Face: Other,Eyes: Left Pupil: 3-mm,Eyes: Right Pupil: 3-mm,LUNG SOUNDS:General: No Abnormalities,ABDOMEN:General: No Abnormalities,PELVIS//GI:EXTREMITIES:PULSE:Radial: 2+ Normal,NEURO:Weakness Right-Sided, Impression Seizures Procedures @15:51 ALS Assessment Response: Unchanged @15:55 Stretcher Response: Unchanged @15:58 Spinal Motion Restriction Response: UnchangedSucceeded @16:01 3-Lead ECG Response: Unchanged Timeline 15:43,Call Received 15:43,Dispatch Notified 15:45,Dispatched 15:45,En Route 15:48,On Scene 15:51,At Patient 15:51,ALS Assessment,Response: Unchanged 15:55,Stretcher,Response: Unchanged 15:58,Spinal Motion Restriction,Response: UnchangedSucceeded, 16:00,BP: 154/76 M,PULSE: 84,RR: 20 R,SPO2: 95 Ox,ETCO2: ,B,PAIN: ,GCS: 10, 16:01,3-Lead ECG,Response: Unchanged 16:06,Depart Scene 16:16,BP: 132/70 M,PULSE: 85,RR: 20 R,SPO2: Ox,ETCO2: ,BG: ,PAIN: ,GCS: 10, 16:16,[place] [address] EMS Patient Care Report Name: ARIADNA HAJI Room #: REG TL [place].#: [id number] Admission: 02/02/21 Attend Phys: Discharge: Date of : 64 Report #: [id number] 16:35,Call Closed Disclaimer v1.1 Copyright 2020 [employer] This EMS Care Summary contains data elements from the applicable legal record (which may be displayed differently). It is designed to provide pertinent information for the following purposes: continuity of care, clinical quality, and state data reporting. The complete legal record is available to ED staff and administrators of the receiving hospital in [facility]'s Patient Tracker. All data is provided "as is."
[2021-02-02 17:30] LABS: ABSOLUTE NEUTROPHILS 3.4 thou/uL (1.4-8.2); EOSINOPHILS 3.1 % (0.0-3.0); HEMATOCRIT 30.6 % (42.0-52.0); HEMOGLOBIN 10.1 gm/dL (14.0-18.0); LYMPHOCYTES 27.1 % (24.0-44.0); MCH 30.8 pg (26.0-34.0); MCHC 32.8 g/dL (28.0-37.0); MCV 93.9 fL (80.0-100.0); MONOCYTES 9.9 % (1.0-8.0); PLATELET COUNT 255 thou/uL (150-400); POLYS 58.9 % (36.0-66.0); RBC 3.26 mil/uL (4.50-6.00); RDW 14.4 % (10.5-14.5); WBC 5.8 thou/uL (4.0-11.0)
[2021-02-02 17:35] LABS: CALCIUM 8.6 mg/dL (8.5-10.1); CREATININE 0.7 mg/dL (0.7-1.3); POTASSIUM 3.2 mmol/L (3.5-5.1)
[2021-02-02 17:41] LABS: ALBUMIN 3.3 g/dL (3.4-5.0); TOTAL BILIRUBIN 0.6 mg/dL (0.2-1.0); TOTAL PROTEIN 6.3 g/dL (6.4-8.2)
[2021-02-02 20:41] VITALS: BP 136/78
--- NOTE | 2021-02-03 07:13 | EKG ---
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: : 1960 Requested By: Leo Sanford Order Number: [id number] MD: Christopher Fraire Measurements Intervals [place] Rate: 77 P: 58 DE: 230 QRS: -79 QRSD: 159 T: 62 QT: 426 QTc: 483 Interpretive Statements Sinus rhythm Prolonged DE interval Right bundle branch block Left ventricular hypertrophy Compared to ECG 01/13/2021 15:58:13 Left ventricular hypertrophy now present Myocardial infarct finding no longer present Electronically Signed On 02-03-2021 7:13:12 SERVICE ATTENDANT by Christopher Fraire [email or web address] <ELECTRONICALLY SIGNED> By: Christopher Fraire MD, [facility] 02/03/21 0713 1716 15 Christopher Fraire MD, FACC /EPI
== END 2021-02-02 20:41 ==
LOC: ER 16:22
PROVIDERS: Emergency Medicine
DX: S00.83XA Contusion of other part of head, initial encounter (principal); G40.909 Epilepsy, unspecified, not intractable, without status epilepticus; I25.2 Old myocardial infarction; E11.9 Type 2 diabetes mellitus without complications; G81.90 Hemiplegia, unspecified affecting unspecified side; Z79.82 Long term (current) use of aspirin; Z79.891 Long term (current) use of opiate analgesic; Z79.1 Long term (current) use of non-steroidal anti-inflammatories (NSAID); Z79.899 Other long term (current) drug therapy; Z79.4 Long term (current) use of insulin; Z88.0 Allergy status to penicillin; W18.30XA Fall on same level, unspecified, initial encounter; Y93.89 Activity, other specified; Y92.89 Other specified places as the place of occurrence of the external cause; Y99.8 Other external cause status